=== PATIENT | female | born 1980 | race African-American/Black ===

== ENCOUNTER 2021-07-13 21:08 | Emergency (ER) | payer OTHER ==
[~2021-07-13] VITALS: Ht 165.1 cm; Wt 77.0 kg
[2021-07-13] MEDS ORDERED: ACETAMINOPHEN 500 MG TABLET PO ONE (21:45)
[2021-07-13 22:00] VITALS: BP 126/68
--- NOTE | 2021-07-13 22:03 | PHYS DOC ---
Past Medical History Past Surgical History: No Surgical History (NEGRA VALLEJO) General Adult EDM: Chief Complaint: HEAD INJURY/TRAUMA HPI: HPI: Patient is a 41 year old female who presents with laceration to her scalp. Patient states that she was getting out of a hot tub, when she hit the top of her head on the structural enclosure. Patient denies loss of consciousness, neck pain, nausea/vomiting or any behavior changes. Patient has no other complaints at this time. (NEGRA VALLEJO) Review of Systems: Review of Systems: ROS negative or noncontributory except as mentioned in HPI. (NEGRA VALLEJO) Heart Score: C/O Chest Pain: No (NEGRA VALLEJO) Current Medications: Current Medications Medications (Trade) Dose Ordered Sig/Betty Start Time Stop Time Status Last Admin Dose Admin Acetaminophen (Tylenol) 1,000 mg 1X ONCE 07/13/21 21:45 07/13/21 21:46 UNV 07/13/21 21:49 1,000 MG (NEGRA VALLEJO) Physical Exam: PE: Constitutional: Well developed, well nourished, no acute distress, non-toxic appearance. HENT: Normocephalic, 1 cm x 1 cm V shaped superficial laceration noted to the superior scalp without hematoma or active bleeding, bilateral external ears without deformity or discharge, nose without deformity or discharge. Eyes: PERRLA, EOMI, conjunctiva normal, no discharge. Neck: Normal range of motion, no tenderness, no stridor. Skin: Warm, dry, no erythema, no rash. See above for scalp laceration. Extremities: No tenderness, no cyanosis, no clubbing, ROM intact, no edema. Neurologic: Alert and oriented x4, steady and symmetrical gait, no focal deficits noted. (NEGRA VALLEJO) Current Patient Data: Vital Signs: Vital Signs Date Time Temp Pulse Resp B/P (MAP) Pulse Ox O2 Delivery O2 Flow Rate FiO2 07/13/21 21:08 98.2 71 18 121/71 (88) 96 Room Air 98.2 (NEGRA VALLEJO) Course & Med Decision Making: Course & Med Decision Making Pertinent Labs and Imaging studies reviewed. (See chart for details) (NEGRA VALLEJO) Course & Med Decision Making Upon reviewing this note I spoke to PA who reported patients' tetanus was up-to-date ([facility],PAULA Daniel DO) Ivette Disclaimer: Ivette Disclaimer: This electronic medical record was generated, in whole or in part, using a voice recognition dictation system. (NEGRA VALLEJO) Laceration Repair Lac Repair Indication: Scalp laceration Procedure: The patient was placed in the appropriate position. The area was then cleansed and irrigated with sterile saline. The laceration was closed with Dermabond. Total repaired wound length: 2 cm Other Items: The patient tolerated the procedure very well. Complications: No complications. (NEGRA VALLEJO) Departure Departure Impression: Primary Impression: Superficial laceration of scalp Qualified Codes: S01.01XA - Laceration without foreign body of scalp, initial encounter Additional Impression: Contusion of scalp, initial encounter Disposition: HOME / SELF CARE / HOMELESS Condition: STABLE Referrals: UNKNOWN PCP NAME (PCP) Patient Instructions: Facial or Scalp Contusion, [id number], Laceration Care, Adult, [id number] Additional Instructions: EMERGENCY DEPARTMENT GENERAL DISCHARGE INSTRUCTIONS Thank you for coming to [facility] Emergency Department (ED) today and trusting us with you care. We trust that you had a positive experience in our Emergency Department. If you wish to speak to the department management, you may call the director at . YOUR FOLLOW UP INSTRUCTIONS ARE FOLLOWS: 1. Follow up with your primary care doctor. If you do not have a primary doctor, please ask for a resource list of physicians or clinics that may be able to assist you with follow up care. 2. The emergency provider has interpreted your imaging studies, if any were ordered. The radiology network management specialist also reviewed them. If there is a change in the findings, you will be notified in 48 hours when at all possible. 3. If a lab test or culture has been done, your results will be reviewed and you will be notified if you need a change in treatment. 4. Follow instructions verbalized to you and refer to the printouts if needed. ADDITIONAL INSTRUCTIONS AND INFORMATION: 1. Your care today has been supervised by a physician who is specially trained in emergency care. Many problems require more than one evaluation for a complete diagnosis and treatment. We recommend that you schedule your follow up appointment as recommended to ensure complete treatment of you illness or injury. If you are unable to obtain follow up care and continue to have a problem, or if your condition worsens, we recommend that you return to the ED. 2. We are not able to safely determine your condition over the phone nor are we able to give sound medical advice over the phone. For these safety reasons, if you call for medical advice we will ask you to come to the ED for further evaluation. 3. If you have any questions regarding these discharge instructions please call the ED at . SAFETY INFORMATION: In the interest of safety, wellness, and injury prevention; we encourage you to wear your seat belt, if you smoke; quite smoking, and we encourage family to use a protective helmet for bicycling and other sporting events that present an increased risk for head injury. IF YOUR SYMPTOMS WORSEN OR NEW SYMPTOMS DEVELOP, OR YOU HAVE CONCERNS ABOUT YOUR CONDITION; OR IF YOUR CONDITION WORSENS WHILE YOU ARE WAITING FOR YOUR FOLLOW UP APPOINTMENT; EITHER CONTACT YOUR PRIMARY CARE DOCTOR, THE PHYSICIAN WHOSE NAME AND NUMBER YOU WERE GIVEN, OR RETURN TO THE ED IMMEDIATELY. NEGRA VALLEJO Jul 13, 2021 22:03 PAULA OTTO DO Jul 14, 2021 00:55
== END 2021-07-13 22:03 | disposition home or self-care (01) ==
LOC: ER 21:08
DX: S01.01XA Laceration without foreign body of scalp, initial encounter (principal); W22.8XXA Striking against or struck by other objects, initial encounter; Y93.89 Activity, other specified; Y92.89 Other specified places as the place of occurrence of the external cause; Y99.8 Other external cause status
CPT/HCPCS: 12001; 99282